=== PATIENT | male | born 1960 ===

== ENCOUNTER → 2017-10-01 | Outpatient (CLI) | payer OTHER ==
[~2017-10-01] MED LIST: ALLEGRA30 MG PO; NAPROXEN 500MG500 M1 PO; PROVENTIL IH
== END ==
LOC: ULTRA 07:59
DX: R10.11 Right upper quadrant pain (principal)

== ENCOUNTER → 2021-06-05 | Outpatient (CLI) | payer OTHER | LOC: RAD 15:54 | PROVIDERS: ATTEND Family Medicine | DX: R06.02 Shortness of breath (principal) ==

== ENCOUNTER → 2021-07-02 | Outpatient (CLI) | payer OTHER ==
[~2021-07-02] MED LIST changes: +FISH OIL 1,001000 M3 PO; +LOSARTAN POTAS100 MG PO; +MULTI VITAMIN1 EACH PO; +OMEPRAZOLE20 M2 PO; +SEROQUEL 50 MG50 M1 PO
--- NOTE | 2021-07-04 10:40 | P ---
[facility] [place] [address] [address] [place] [address] PROCEDURE REPORT Name: JULIO HODGE Room #: REG DARÍO Ileana#: [id number] Admission: 07/02/21 Attend Phys: eJd Leger Discharge: Date of : 62 Report #: [id number] THIS REPORT FOR: cc: David Gray MD, FAAFP, FACEP, Douglas MD FAAFP FACEP McElhinney, Christian C. MD ~ cc: David Gray MD DATE OF SERVICE: 07/02/2021 PROCEDURES PERFORMED: Upper endoscopy with biopsies, polypectomies, bleeding control and esophageal dilation. HISTORY OF PRESENT ILLNESS: The patient is a 61-year-old male with a history of gastroesophageal reflux disease and dysphagia. He is currently taking omeprazole on a daily basis with continued symptoms of heartburn at times. No previous history of upper endoscopy. DESCRIPTION OF PROCEDURE: The risks and benefits of the procedure were explained to the patient, those risks including, but not limited to bleeding, perforation and the risk of sedation. He understood these risks and gave informed consent. Sedation was given using propofol per Anesthesia. Next, using a standard Olympus upper endoscope, the scope was placed in the patient's mouth and advanced under direct vision through the esophagus, stomach and into the second portion of the duodenum. The larynx was normal in appearance. The upper and mid esophagus were normal. At the GE junction, a possible short segment of Saucedo's was noted. Biopsies were obtained. No evidence of stricture or esophagitis. There was a mild gastritis noted in the gastric body. Biopsies were obtained to rule out H. pylori. A gastric polyp that was somewhat inflamed was noted in the gastric body as well. This was removed by snare cautery. A small amount of bleeding was noted after polypectomy; therefore, a single endoclip was placed. No further bleeding was noted. There was also a gastric polyp that was seen in the pyloric channel. This was also removed by snare cautery. No evidence of bleeding after cauterization. The duodenal bulb, first and second portion were all normal. The scope was then brought back up into the patient's stomach and a Savary guidewire was inserted through the scope, leaving the guidewire in place as the scope was then withdrawn. Next, a 51-Bh[place] Savary dilation of the esophagus was performed without difficulty. The wire and dilator removed. The scope was reintroduced into the patient's stomach. There was no evidence of mucosal tear after dilation. The scope was then withdrawn and the procedure terminated. The patient tolerated the procedure well. IMPRESSION: 1. Gastric body polyp. 2. Gastritis. [address] [address] PROCEDURE REPORT Name: JULIO HODGE Room #: REG DARÍO Tejeda#: [id number] Admission: 07/02/21 Attend Phys: Jed Leger Discharge: Date of : 62 Report #: [id number] 3. Pyloric channel polyp. 4. 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 RECOMMENDATIONS: 1. Await biopsy results. 2. Observe the patient post-dilation. 3. Consider b.i.d. PPI therapy. Thank you for allowing me to participate in his care. <ELECTRONICALLY SIGNED> By: Jed Vasquez MD 07/04/21 1040 [id number] [id number] Jed Vasquez MD /nt
--- NOTE | 2021-07-08 15:07 | PATH ---
[facility] [place] [address] PATHOLOGY RPT PROCEDURE Name: JOSESITO HAINESJULIO Room #: REG MICHAELDee Dee Tejeda#: [id number] Admission: 07/02/21 Date of : 62 Discharge: Report #: [id number] Path Case #: [id number] [facility] Accession Number: [id number] . 01 Material submitted: . PART A: gastrointestinal site - PYLORIC CHANNEL POLYP PART B: esophagus - DISTAL ESOPHAGUS R/O ROSSI'S. Modifiers: distal PART C: esophagus - DISTAL ESOPHAGUS R/O GASTRITIS. Modifiers: distal PART D: gastrointestinal site - GASTRIC POLYP . 01 Clinical history: . ESOPHAGOGASTRODUODENOSCOPY . 01 Diagnosis: A. Colonic mucosa, "pyloric channel polyp biopsy": - Hyperplastic polyp with intestinal metaplasia. - There is no evidence of adenomatous change, high-grade dysplasia or malignancy. . B. Squamous and glandular mucosa, "distal esophagus, rule out Rossi's": - Reflux esophagitis with reactive squamous and glandular mucosa. - There is no evidence of goblet cell metaplasia, dysplasia or malignancy. . C. Gastric mucosa, "distal esophagus, rule out gastritis": - Gastric mucosa revealing mild chronic reactive gastropathy. - No Helicobacter pylori seen. . D. Gastric biopsy, "gastric polyp biopsy": - Fundic gland polyp. - There is no evidence of adenomatous change, high-grade dysplasia or malignancy. . (YENNI:tavon; 07/04/2021) MBR 07/04/2021 1546 Local . 01 Electronically signed: . Oren Miguel MD, Pathologist NPI- [id number] . 01 Gross description: . A. The specimen is received in formalin, labeled "Monica Curry, pyloric channel polyp" and consists of a brown-sierra polypoid tissue measuring 0.9 x 0.6 x 0.5 cm which is serially sectioned and submitted entirely in A1. . B. The specimen is received in formalin, labeled "Monica Curry, distal esophagus R/O Rossi's" and consists of a sierra irregular tissue [address] [address] PATHOLOGY RPT PROCEDURE Name: JULIO HODGE Room #: REG CLI Ileana#: [id number] Admission: 07/02/21 Date of : 62 Discharge: Report #: [id number] Path Case #: [id number] measuring 0.4 x 0.3 x 0.2 cm which is submitted in toto in B1. . C. The specimen is received in formalin, labeled "Curry, Haines, distal esophagus gastritis", however the requisition designates the specimen as "distal esophagus R/O gastritis". The specimen consists of 2 sierra irregular tissues aggregating 0.7 x 0.4 x 0.2 cm which are submitted in toto in C1. . D. The specimen is received in formalin, labeled "Curry, Haines, gastric polyp" and consists of a sierra polypoid tissue measuring 0.9 x 0.7 x 0.6 cm which is serially sectioned and submitted entirely in D1.(YANKTON; 07/03/2021) DKA/DKA 07/04/2021 1024 Local . 01 Pathologist provided ICD-10: K31.7, K21.00, K31.9 . 01 CPT . 971846, 389801, 705800, 458255 Specimen Comment: A courtesy copy of this report has been sent to [phone] Specimen Comment: [id number] Specimen Comment: Report sent to / DR FELIPE Specimen Comment: A duplicate report has been generated due to demographic updates. Performed at: [address], [place] [id number] MD Oren Miguel MD Phone: [phone]
== END | disposition home or self-care (01) ==
LOC: GI
PROVIDERS: ATTEND Specialist
DX: R13.19 Other dysphagia (principal); K31.9 Disease of stomach and duodenum, unspecified; K31.7 Polyp of stomach and duodenum; K21.00 Gastro-esophageal reflux disease with esophagitis, without bleeding; Z98.890 Other specified postprocedural states; Z79.899 Other long term (current) drug therapy; Z88.0 Allergy status to penicillin; Z20.822 Contact with and (suspected) exposure to COVID-19
CPT/HCPCS: 62110; 62900